=== PATIENT | male | born 1995 | race Caucasian/White ===

== ENCOUNTER 2018-02-05 20:13 | Emergency (ER) | payer OTHER ==
[2018-02-05] MEDS ORDERED: NS 1,000 ML IV ONE (21:01)
[2018-02-05] MEDS ORDERED: ONDANSETRON 4 MG/2 ML VIAL IVP ONE (21:03)
[2018-02-05] MEDS ORDERED: fentaNYL 100 MCG/2 ML INJ IVP ONE ×2 (21:03→21:42)
--- NOTE | 2018-02-05 21:08 | EDPHY ---
H & P Time Seen by Provider: 02/05/18 20:46 HPI/ROS: HPI Headache, body aches. 23-year-old male by private vehicle with his friends. This patient just returned from her oral [place] on Sunday. [place] He is a student [employer] [facility] [employer] [facility] [employer]. He reports that he felt fine on Sunday and Sunday. Sunday he developed a headache with body aches. He was seen by his primary care physician at the [facility] on Sunday. He reportedly had a negative influenza test at that time. He then saw his primary care physician again this morning with complaint of worsening symptoms. He was referred to infectious disease. He saw Dr. Loredo this afternoon. She has order testing for dengue fever and malaria. The results of these tests are pending currently. She instructed him to go to the emergency department for worsening headache or neck pain. He presents now with worsening headache and neck pain. Headache described as frontal and a dull aching. He still complains of joint and muscle aches as well. He has had intermittent fever. ROS: Constitutional: As above no chills. No weakness. Eyes: No discharge. No changes in vision. ENT: No sore throat. No nasal congestion or rhinorrhea. Respiratory: No cough. No shortness of breath. Cardiac: No chest pain, no palpitations. Gastrointestinal: No abdominal pain, no vomiting, no diarrhea. Genitourinary: No hematuria. No dysuria or increased frequency with urination. Musculoskeletal: No back pain. As above. Skin: No rashes. Neurological: As above. No focal weakness or altered sensation. Past medical history: Kidney stones, asthma, left hand surgery. Social history: Student [place]. Here with his friends. Travel as noted above. Nonsmoker. Denies alcohol. Physical Exam: General Appearance: Alert, he appears uncomfortable. This patient is responding to questions appropriately and in full sentences. This patient appears well-hydrated and well-nourished. Eyes: Pupils equal and round at 3-2 mm bilaterally, no pallor or injection. No lid edema, erythema or injection. No nystagmus. He does have photophobia. ENT, Mouth: Mucous membranes are moist. The pharyngeal tissues are unremarkable. No edema or swelling. No asymmetry suggestive of abscess. No erythema or exudates. Respiratory: There are no retractions, lungs are clear to auscultation with good air movement bilaterally. Cardiovascular: Regular rate and rhythm. No murmur. Gastrointestinal: Abdomen is soft and nontender, no masses, bowel sounds normal. No focal tenderness at McBurney's point. No Carson sign. Neurological: Motor sensory function is grossly intact. Cranial nerves are normal. Gait is normal. Skin: Warm and dry, no rashes. Musculoskeletal: Neck is supple with pain elicited on flexion of the neck. Extremities are symmetrical. All joints range without pain or impingement. Psychiatric: No agitation. No depression. Database: EKG: Imaging: CT brain without contrast: Negative. Results were discussed with staff radiologist Dr. Brent Dunn. Procedures: Procedure: Lumbar puncture. Indication: Headache, neck stiffness. After verbal informed consent from patient explaining the risks including infection, bleeding, and neurologic damage, a lumbar puncture was performed after the patient was prepped and draped in the usual fashion. The back was anesthetized with 1% lidocaine. Approximately 4 cc of clear fluid was obtained. Opening pressure was not obtained. There were no complications. The procedure was performed by myself. Emergency department course: IV placed. Vital signs reviewed. Borderline tachycardic. Afebrile. Patient will be started on IV normal saline with 1 L to be given over the next hour. He consents for lumbar puncture to evaluate for meningitis. Will be sent for CT head prior to this procedure being done. He will be given 100 mcg of IV fentanyl for his headache and 4 mg of IV Zofran. 10:00 p.m., lumbar puncture performed. Patient given additional 50 mcg of IV fentanyl. Results of his CT scan discussed with him. 10:55 p.m., this patient was re-evaluated. He still complains of a headache. His workup is essentially been negative in the emergency department. CSF fluid is normal. G stain normal. Blood work normal. He is negative for malaria. Id paged for consultation. Patient's vital signs reviewed and are normal. 11:10 p.m., spoke with infectious disease specialist Dr. Jim Shaffer. Case was discussed with him in detail. His emergency department workup reviewed thoroughly. Dr. Shaffer feels that outside of pain control this patient does not require admission. I am in agreement. At this time we will not start him on antibiotics. We left it that if the patient is admitted he or 1 of his partners will see the patient on consultation in the morning. Otherwise, they will see him in the office for follow-up tomorrow. 11:15 p.m., patient re-evaluated. He was given 600 mg of ibuprofen and 2 Vicodin. I discussed admission for pain control and hydration. I explained my conversation with Dr. Shaffer. The patient declines admission and feels comfortable going home with his friends. He will follow up with Dr. Shaffer or Dr. Loredo tomorrow in their clinic. He understands the importance of this follow-up. Return to emergency department precautions have been thoroughly reviewed with him. He can easily return to the emergency department if needed. His friends who are with him will keep a close eye on him tonight. All of his questions were answered. The patient was discharged in good condition with his friends. Differential Diagnosis: The differential diagnosis on this patient includes but is not limited to meningitis, encephalitis, influenza, viral syndrome, dengue fever, malaria. This represents a partial list of diagnoses considered. These considerations are based on history, physical exam, past history, reassessment and diagnostic testing. Smoking Status: Never smoked Constitutional: Initial Vital Signs Temperature (C) 37.1 C 02/05/18 20:15 Heart Rate 102 H 02/05/18 20:15 Respiratory Rate 18 02/05/18 20:15 Blood Pressure 132/75 H 02/05/18 20:15 O2 Sat (%) 93 02/05/18 20:15 O2 Delivery Mode Room Air Allergies/Adverse Reactions: No Known Allergies Allergy (Verified 02/05/18 20:18) Home Medications: Medication Instructions Recorded Hydrocodone/APAP 5/325 [[place] 1 - 2 tab PO Q4-6PRN PRN #10 tab 02/05/18 5/325 (*)] Medical Decision Making - Diagnostics Imaging Results: Imaging Impressions Head CT 02/05/18 21:09 Impression: 1. No acute intracranial findings. 2. Additional findings as above. Findings discussed with Yolanda Alaniz MD 02/05/2018 at 21:30. - Data Points Laboratory Results: Laboratory Results 02/05/18 21:12 02/05/18 21:12 02/05/18 02/05/18 02/05/18 21:50 21:50 21:50 WBC RBC Hgb Hct MCV MCH MCHC RDW Plt Count MPV Neut % (Auto) Lymph % (Auto) Bradley % (Auto) Eos % (Auto) Baso % (Auto) Nucleat RBC Rel Count Absolute Neuts (auto) Absolute Lymphs (auto) Absolute Monos (auto) Absolute Eos (auto) Absolute Basos (auto) Absolute Nucleated RBC Immature Gran % Immature Gran # Sodium Potassium Chloride Carbon Dioxide Anion Gap BUN Creatinine Estimated GFR Glucose Calcium CSF Tube Number 4 1 CSF Appearance CLEAR CLEAR (CLEAR) (CLEAR) CSF Color COLORLESS COLORLESS (COLORLESS) (COLORLESS) CSF Supernatant COLORLESS COLORLESS (COLORLESS) (COLORLESS) CSF WBC 0 /mm3 /mm3 3 /mm3 /mm3 (0-5) (0-5) CSF RBC 3 /mm3 H /mm3 0 /mm3 /mm3 (0-0) (0-0) CSF Glucose 59 mg/dL mg/dL (50-75) CSF Total Protein 27 mg/dL mg/dL (12-60) Nasal Influenza A PCR Nasal Influenza B PCR HSV Source Description Pending HSV I DNA PCR Pending HSV II DNA PCR Pending 02/05/18 02/05/18 02/05/18 21:12 21:12 21:12 WBC 7.27 10^3/uL 10^3/uL (3.80-9.50) RBC 4.85 10^6/uL 10^6/uL (4.40-6.38) Hgb 14.8 g/dL g/dL (13.7-17.5) Hct 42.2 % % (40.0-51.0) MCV 87.0 fL fL (81.5-99.8) MCH 30.5 pg pg (27.9-34.1) MCHC 35.1 g/dL g/dL (32.4-36.7) RDW 12.4 % % (11.5-15.2) Plt Count 234 10^3/uL 10^3/uL (150-400) MPV 9.0 fL fL (8.7-11.7) Neut % (Auto) 67.4 % % (39.3-74.2) Lymph % (Auto) 18.6 % % (15.0-45.0) Bradley % (Auto) 12.8 % % (4.5-13.0) Eos % (Auto) 0.3 % L % (0.6-7.6) Baso % (Auto) 0.6 % % (0.3-1.7) Nucleat RBC Rel Count 0.0 % % (0.0-0.2) Absolute Neuts (auto) 4.91 10^3/uL 10^3/uL (1.70-6.50) Absolute Lymphs (auto) 1.35 10^3/uL 10^3/uL (1.00-3.00) Absolute Monos (auto) 0.93 10^3/uL H 10^3/uL (0.30-0.80) Absolute Eos (auto) 0.02 10^3/uL L 10^3/uL (0.03-0.40) Absolute Basos (auto) 0.04 10^3/uL 10^3/uL (0.02-0.10) Absolute Nucleated RBC 0.00 10^3/uL 10^3/uL (0-0.01) Immature Gran % 0.3 % % (0.0-1.1) Immature Gran # 0.02 10^3/uL 10^3/uL (0.00-0.10) Sodium 137 mEq/L mEq/L (135-145) Potassium 4.1 mEq/L mEq/L (3.5-5.2) Chloride 105 mEq/L mEq/L (97-110) Carbon Dioxide 23 mEq/l mEq/l (22-31) Anion Gap 9 mEq/L mEq/L (8-16) BUN 14 mg/dL mg/dL (7-23) Creatinine 0.9 mg/dL mg/dL (0.7-1.3) Estimated GFR > 60 Glucose 112 mg/dL H mg/dL (70-100) Calcium 9.2 mg/dL mg/dL (8.5-10.4) CSF Tube Number CSF Appearance CSF Color CSF Supernatant CSF WBC CSF RBC CSF Glucose CSF Total Protein Nasal Influenza A PCR NEGATIVE FOR FLU A (NEGATIVE) Nasal Influenza B PCR NEGATIVE FOR FLU B (NEGATIVE) HSV Source Description HSV I DNA PCR HSV II DNA PCR Microbiology Results: MICROBIOLOGY 02/05/18 21:50 Cerebral Spinal Fluid Gram Stain - Final Medications Given: Discontinued Medications Fentanyl (Sublimaze) 100 mcg IVP EDNOW ONE Stop: 02/05/18 21:04 Last Admin: 02/05/18 21:15 Dose: 100 mcg Fentanyl (Sublimaze) 100 mcg IVP EDNOW ONE Stop: 02/05/18 21:43 Last Admin: 02/05/18 21:53 Dose: 100 mcg Sodium Chloride (Ns) 1,000 mls @ 0 mls/hr IV ONCE ONE; Wide Open PRN Reason: Protocol Stop: 02/05/18 21:02 Last Admin: 02/05/18 21:17 Dose: 1,000 mls Ondansetron HCl (Zofran) 4 mg IVP EDNOW ONE Stop: 02/05/18 21:04 Last Admin: 02/05/18 21:15 Dose: 4 mg Departure - Departure Disposition: Home, Routine, Self-Care Clinical Impression: Headache, Viral syndrome Condition: Good Instructions: Viral Syndrome (ED), Acute Headache (ED) Additional Instructions: Read and follow provided instructions. Follow-up with Dr. Loredo, in clinic tomorrow as discussed for re-evaluation and any further management. Call the office is a [facility] in the morning for appointment time. They are expecting to see you tomorrow. Take medication as prescribed. Ibuprofen dosin mg every 6 hours with meals for the next 3 days only. Take only as needed for pain. [place]/Percocet dosin-2 every 4-[address] not drive on this medication. Return to the emergency department for worsening headache, vomiting, high fever or other serious concerns. Referrals: Melissa Loredo MD [Medical Doctor] - As per Instructions Prescriptions: Hydrocodone/APAP 5/325 [[place] 5/325 (*)] 1 - 2 tab PO Q4-6PRN PRN #10 tab PRN Reason: Pain, Moderate
[2018-02-05 21:22] LABS: PLATELET COUNT 234 10^3/uL (150-400)
[2018-02-05] MEDS ORDERED: fentaNYL 100 MCG/2 ML INJ ONE (21:38)
[2018-02-05] MEDS ORDERED: HYDROCOD/APAP 5/325 PREPACK#6 BTL TAKEHOME ONE (23:14)
[2018-02-05] MEDS ORDERED: HYDROCODONE/APAP 5/325 TAB PO ONE (23:14)
[2018-02-05] MEDS ORDERED: IBUPROFEN 600 MG TAB PO ONE (23:14)
[2018-02-05 23:31] VITALS: BP 109/59
== END 2018-02-05 23:35 | disposition home or self-care (01) ==
PROC: 009U3ZX Drainage of Spinal Canal, Percutaneous Approach, Diagnostic (ICD-10-PCS; principal; 2018-02-05)
DX: R51 Headache (principal); B34.9 Viral infection, unspecified; J45.909 Unspecified asthma, uncomplicated; E86.9 Volume depletion, unspecified
CPT/HCPCS: 87529-90; 96374; J2405; J3010

== ENCOUNTER 2018-02-08 21:11 | Emergency (ER) | payer OTHER ==
--- NOTE | 2018-02-08 21:37 | EDPHY ---
H & P Stated Complaint: MIGRAINE HEADACHE AFTER LP IN ED ON SUNDAY - Personal History Current Tetanus/Diphtheria Vaccine: Yes Current Tetanus Diphtheria and Acellular Pertussis (TDAP): Yes - Medical/Surgical History Hx Asthma: Yes Hx Chronic Respiratory Disease: No Hx Diabetes: No Hx Cardiac Disease: No Hx Renal Disease: No Hx Cirrhosis: No Hx Alcoholism: No Hx HIV/AIDS: No Hx Splenectomy or Spleen Trauma: No Other PMH: kidney stones/add, asthma, left hand surgery - Social History Smoking Status: Never smoked Time Seen by Provider: 02/08/18 21:34 HPI/ROS: CHIEF COMPLAINT: Continued headache HISTORY OF PRESENT ILLNESS: 23-year-old male was seen in the emergency department 3 days ago after complaining of headache and myalgias after he returned from a trip to [facility] [place]. At initial emergency department visit he had comprehensive evaluation including CT imaging of the head , lumbar puncture and consultation with Infectious Disease who followed the patient the following day after being in the emergency department. His current headache has been present for 1 week, notes that it appeared to be exacerbated after his lumbar puncture. Earlier today he described it as positional. Currently in the emergency department however he states that since being in the ER his pain has by and large resolved and is no longer experiencing positional headache or nausea. He brought with him page soup which he is actively eating while sitting up when I initially interview him. REVIEW OF SYSTEMS: A ten point review of systems was performed and is negative with the exception of the items mentioned in the HPI PAST MEDICAL & SURGICAL HISTORY: No pertinent medical or surgical history SOCIAL HISTORY: Student [employer] PHYSICAL EXAM (Prior to examination, patient consented to physical exam, hands were washed and my usual and customary physical exam procedures followed) 1) GENERAL: Well-developed, well-nourished, alert and oriented. Appears to be in no acute distress. When I enter the patient's room he is sitting up on the bed eating soup. 2) HEAD: Normocephalic, atraumatic 3) HEENT: Pupils equal, round, reactive to light bilaterally. Sclera anicteric. Positive photophobia. Nasopharynx, oropharynx, clear, no lesions. Ears bilaterally with normal tympanic membranes. 4) NECK: Full range of motion, no meningeal signs. 5) LUNGS: Clear auscultation bilaterally, no wheezes, no rhonchi, no retractions. 6) HEART: Regular rate and rhythm, no murmur, no heave, no gallop. 7) ABDOMEN: No guarding, no rebound, no focal tenderness, negative McBurney's, negative Carson's, negative Rovsing's, negative peritoneal sign, 8) MUSCULOSKELETAL: Moving all extremities, no focal areas of tenderness, no obvious trauma. No peripheral edema or discoloration. 9) BACK: No CVA tenderness, no midline vertebral tenderness, no fluctuance, no step-off, no obvious trauma, no visual or palpable abnormality. 10) SKIN: No rash, no petechiae. 11) Psychiatric: Patient is oriented X 3, there is no agitation. 12) NEURO: Awake, alert, and oriented to person, place and time. Answers questions appropriately. There were no obvious focal neurologic abnormalities. No cerebellar dysfunction. Normal steady gait. Upper and lower extremities bilaterally with strength 5 / 5, reflexes 2+. DIFFERENTIAL DIAGNOSIS: In no particular order, including but not limited to subarachnoid hemorrhage, post LP headache, migraine headache, tension headache and infectious causes such as meningitis, pharyngitis and sinusitis. The patient understands that this diagnosis is provisional and can never be 100% accurate. Usual and customary warnings were given concerning the clinical impression and all the patient's questions were answered. The patient was instructed to return to the emergency department should her symptoms worsen or return, or develop any new symptoms, otherwise to followup as directed in discharge instructions. This is a partial list of diagnoses considered. These considerations are based on history, physical exam, past history and reassessment. (Zhou Sales) Constitutional: Initial Vital Signs Temperature (C) 36.6 C 02/08/18 21:15 Heart Rate 74 02/08/18 21:15 Respiratory Rate 18 02/08/18 21:15 Blood Pressure 115/86 H 02/08/18 21:15 O2 Sat (%) 96 02/08/18 21:15 O2 Delivery Mode Room Air Allergies/Adverse Reactions: No Known Allergies Allergy (Verified 02/08/18 21:18) Home Medications: Medication Instructions Recorded Hydrocodone/APAP 5/325 [[place] 1 - 2 tab PO Q4-6PRN PRN #10 tab 02/05/18 5/325 (*)] Hydrocodone/APAP 5/325 [Par[place]ise 1 tab PO Q6 PRN #10 tab 02/09/18 5/325 (RX)] Ibuprofen [Motrin (*)] 800 mg PO Q6 #15 tab 02/09/18 Medical Decision Making ED Course/Re-evaluation: 9:53 p.m. I reviewed the patient's old medical records including his CSF and blood cultures which are negative for growth. He states that he is currently feeling better. Although he describes a positional headache earlier today, at this time he is sitting upright eating a large bowl of page soup and states that his nausea has resolved. This was after he took Tylenol and smoked marijuana earlier which he states is assisting his symptoms of nausea headache. I had a lengthy discussion with him and discussed his options. We discussed options including, but not limited to, providing IV hydration and IV analgesia in the ER , we discussed blood patching. Because he states that he is feeling improvement without intervention from the emergency department, he requests to be discharged home , requests a small prescription for analgesia. He has been informed that he is more than welcome to return to the ER at any point for re- evaluation or if he develops intractable pain or nausea. At this time I do not think that repeat diagnostic studies, imaging or consultation with Infectious Disease is indicated. Care of patient under supervision of secondary supervising physician Dr Peterson . 10:49 p.m.: The patient was still in the emergency department at this time, at this time before being discharged he wanted to speak with me. He states that he is having return of pain after 1.5 tablets of Paradise. I have once again discussed the same options as before and he requests IV hydration, although he is tolerating full oral intake, requests IV analgesia. 11:42 p.m.: Re-evaluation, sleeping, easily woken. His pain is controlled. He would like to be discharged. (Zhou Sales) Other Provider: The patient was evaluated and managed by the Physician Perch Mender. I discussed the patient's presentation and course with the midlevel provider with them and agree with the evaluation. My co-signature indicates that I have reviewed this chart and I agree with the findings and plan of care as documented. I am the secondary supervising physician. (Radha Peterson) - Data Points Medications Given: Discontinued Medications Hydrocodone Bitart/Acetaminophen (Paradise 5/325mg Prepack#6) 1 btl TAKEHOME EDNOW ONE Stop: 02/08/18 21:59 Last Admin: 02/08/18 22:08 Dose: 1 btl Dexamethasone (Decadron Injection) 10 mg IVP EDNOW ONE Stop: 02/08/18 22:49 Last Admin: 02/08/18 22:59 Dose: 10 mg Diphenhydramine HCl (Benadryl Injection) 25 mg IVP EDNOW ONE Stop: 02/08/18 22:49 Last Admin: 02/08/18 22:58 Dose: 25 mg Sodium Chloride (Ns) 1,000 mls @ 0 mls/hr IV ONCE ONE PRN Reason: Wide Open Stop: 02/08/18 22:49 Last Admin: 02/08/18 23:03 Dose: 1,000 mls Ketorolac Tromethamine (Toradol) 15 mg IVP EDNOW ONE Stop: 02/08/18 22:49 Last Admin: 02/08/18 23:01 Dose: 15 mg Metoclopramide HCl (Reglan Injection) 10 mg IVP EDNOW ONE Stop: 02/08/18 22:49 Last Admin: 02/08/18 23:04 Dose: 10 mg Ondansetron HCl (Zofran Odt 4 Mg Prepack#2) 1 btl TAKEHOME EDNOW ONE Stop: 02/08/18 21:59 Last Admin: 02/08/18 22:07 Dose: 1 btl Departure - Departure Disposition: Home, Routine, Self-Care Clinical Impression: Headache Qualifiers: Headache type: unspecified Headache chronicity pattern: acute headache Intractability: not intractable Qualified Code(s): R51 - Headache Condition: Good Instructions: Hydrocodone/Acetaminophen (By mouth), Ondansetron (By mouth), Acute Headache (ED) Additional Instructions: RETURN TO THE ED IMMEDIATELY IF YOUR HEADACHE WORSENS, IF YOU DEVELOP A FEVER, NECK PAIN OR NECK STIFFNESS, OR IF YOU BECOME CONFUSED OR ABNORMALLY DROWSY. Referrals: Melissa Loredo MD [Medical Doctor] - 1-2 days without fail Stand Alone Forms: School Excuse, Statement of Treatment Prescriptions: Hydrocodone/APAP 5/325 [Paradise 5/325 (RX)] 1 tab PO Q6 PRN #10 tab PRN Reason: Pain, Severe Ibuprofen [Motrin (*)] 800 mg PO Q6 #15 tab
[2018-02-08] MEDS ORDERED: ONDANSETRON 4MG PREPACK#2 BTL TAKEHOME ONE (21:58)
[2018-02-08] MEDS ORDERED: HYDROCOD/APAP 5/325 PREPACK#6 BTL TAKEHOME ONE (21:58)
[2018-02-08] MEDS ORDERED: NS 1,000 ML IV ONE (22:48)
[2018-02-08] MEDS ORDERED: KETOROLAC 15 MG/1 ML SDV IVP ONE (22:48)
[2018-02-08] MEDS ORDERED: METOCLOPRAMIDE 10 MG/2 ML VIAL IVP ONE (22:48)
[2018-02-08] MEDS ORDERED: DEXAMETHASONE 10 MG/ML VIAL IVP ONE (22:48)
[2018-02-08 23:41] VITALS: BP 98/65
== END 2018-02-09 00:14 | disposition home or self-care (01) ==
DX: R51 Headache (principal); J45.909 Unspecified asthma, uncomplicated
CPT/HCPCS: 96374; J1100; J1200; J1885; J2765